=== PATIENT | male | born 1960 | race Caucasian/White ===

== ENCOUNTER 2019-01-03 18:56 | Inpatient (IN) | payer MEDICARE, OTHER ==
[~2019-01-03] VITALS: Ht 180.3 cm; Wt 82.7 kg
[2019-01-03 20:02] LABS: BASOPHILS # (AUTO) 0.1 X10'3 (0-0.2); BASOPHILS % (AUTO) 1.8 % (0-1); EOSINOPHILS % (AUTO) 0.5 % (0-6); HEMATOCRIT 34.5 % (42.0-52.0); HEMOGLOBIN 10.5 g/dl (14.0-17.9); LYMPHOCYTES % (AUTO) 20.4 % (21-51); MEAN CORPUSCULAR HEMOGLOBIN 22.5 PG (27.0-31.0); MEAN CORPUSCULAR HGB CONC 30.5 g/dL (33.0-36.5); MEAN CORPUSCULAR VOLUME 73.9 FL (78-98); MEAN PLATELET VOLUME 8.4 FL (7.4-10.4); MONOCYTES # (AUTO) 0.5 X10'3 (0-0.9); MONOCYTES % (AUTO) 9.9 % (2-12); NEUTROPHILS # (AUTO) 3.2 X10'3 (1.8-7.7); NEUTROPHILS % (AUTO) 67.4 % (42-75); PLATELET COUNT 254 X10'3 (140-440); RED BLOOD COUNT 4.67 X10'6 (4.70-6.10); RED CELL DISTRIBUTION WIDTH 29.5 % (11.5-14.5); WHITE BLOOD COUNT 4.8 X10'3 (4.5-11.0)
[2019-01-03 20:15] LABS: PARTIAL THROMBOPLASTIN TIME 29 SECONDS (22-32)
[2019-01-03 20:17] LABS: ALANINE AMINOTRANSFERASE 38 U/L (12-78); ALKALINE PHOSPHATASE 213 IU/L (46-116); ANION GAP 16 (8-16); ASPARTATE AMINO TRANSFERASE 57 U/L (10-37); BILIRUBIN,TOTAL 3.6 MG/DL (0.1-1.0); BLOOD UREA NITROGEN 26 MG/DL (7-18); BUN/CREATININE RATIO 16.9 (5.4-32.0); CALCIUM 8.8 MG/DL (8.5-10.1); CHLORIDE 100 MMOL/L (99-107); CREATININE 1.54 MG/DL (0.60-1.10); GLUCOSE 86 MG/DL (70-104); LARGE PLATELETS FEW; PLATELET ESTIMATE NORMAL; SODIUM 135 MMOL/L (135-145); eGFR 47 ML/MIN
[2019-01-03 20:18] LABS: ANISOCYTOSIS 3+; HYPOCHROMASIA 2+; MICROCYTOSIS 1+; POLYCHROMASIA FEW; TARGET CELLS 1+
[2019-01-03 20:19] LABS: POIKILOCYTOSIS 1+
[2019-01-03 20:20] LABS: SCHISTOCYTES FEW
[2019-01-03 20:23] LABS: ALBUMIN/GLOBULIN RATIO 0.6 (1.1-1.5); POTASSIUM 4.5 MMOL/L (3.5-5.1); TOTAL PROTEIN 7.7 G/DL (6.4-8.2)
[2019-01-03] MEDS ORDERED: aspirin 81mg tab.chew PO ONE (20:30)
[2019-01-03] MEDS ORDERED: furosemide 10 MG/1 ML 10ml inj IV ONE (21:00)
[2019-01-03 21:17] LABS: LIPASE 100 U/L (73-393)
[2019-01-03] MEDS ORDERED: heparin 10,000 units/1 ML INJ IV ONE ×3 (21:35→22:20)
[2019-01-03] MEDS ORDERED: heparin 25,000 UNIT/250ml bag 250 ML IV SCH (22:20)
[2019-01-03] MEDS ORDERED: heparin 10,000 units/1 ML INJ IV PRN (22:20)
[2019-01-03] MEDS: heparin 25,000 UNIT/250ml bag 250 ML IV SCH (22:32)
[2019-01-03] MEDS ORDERED: CARV12.5 PO (22:41)
[2019-01-03] MEDS ORDERED: EPIN11.7 INH (22:41)
[2019-01-03] MEDS ORDERED: ALBU8HFA PO (22:41)
[2019-01-03] MEDS ORDERED: FURO80TA3 PO (22:47)
[2019-01-03] MEDS ORDERED: FERR325T28 PO (22:47)
--- NOTE | 2019-01-03 22:52 | NUR ---
Note toni in [facility] - 01/03/19 at 2254 by TRELL patient reports she feel better after getting a breathing treatment, I can still hear wheezes. I will continue to monitor.
--- NOTE | 2019-01-03 22:54 | NUR ---
Heparin gtt started, Dr. Brooke is with the patient now.
[2019-01-03 23:09] LABS: URINE AMPHETAMINE SCREEN POSITIVE (Neg); URINE BARBITUATE SCREEN NEGATIVE (Neg); URINE BENZODIAZEPINES SCREEN NEGATIVE (Neg); URINE CANNABINOID SCREEN NEGATIVE (Neg); URINE COCAINE SCREEN NEGATIVE (Neg); URINE METHADONE SCREEN NEGATIVE (Neg); URINE OPIATE SCREEN NEGATIVE (Neg); URINE PHENCYCLIDINE SCREEN NEGATIVE (Neg)
[2019-01-03] MEDS ORDERED: acetaminophen 325mg tablet PO PRN (23:10)
[2019-01-03] MEDS ORDERED: mag hydrox/Alum hydrox/simeth 30ml oral suspension PO PRN (23:10)
[2019-01-03] MEDS ORDERED: magnesium hydroxide 30ml (MOM) UD suspension PO PRN (23:10)
[2019-01-03] MEDS ORDERED: ondansetron/PF 4mg/2ml inj IV PRN (23:10)
[2019-01-03] MEDS ORDERED: morphine 2 MG/ML inj. syringe IV PRN ×2 (23:10)
[2019-01-04] VITALS (7 sets, daily range): BP systolic 102–124; BP diastolic 69–88
--- NOTE | 2019-01-04 00:23 | NUR ---
Recieved report from ALISHA Monzon in ER. Patient transferred to PCU arrived via gurney at 0015. Placed patient on tele 47, MRSA swab complete, heparin drip running per protocol, patient belongings in bedside drawer, 2 RN skin check complete. Vital signs take, will record in vital intervention. Patient is resting.
[2019-01-04 01:51] LABS: BASOPHILS % (AUTO) 0.7 % (0-1); EOSINOPHILS % (AUTO) 0.3 % (0-6); HEMATOCRIT 36.1 % (42.0-52.0); HEMOGLOBIN 10.9 g/dl (14.0-17.9); LYMPHOCYTES # (AUTO) 1.2 X10'3 (1.1-4.8); LYMPHOCYTES % (AUTO) 25.5 % (21-51); MEAN CORPUSCULAR HEMOGLOBIN 22.4 PG (27.0-31.0); MEAN CORPUSCULAR HGB CONC 30.3 g/dL (33.0-36.5); MEAN PLATELET VOLUME 8.3 FL (7.4-10.4); MONOCYTES # (AUTO) 0.3 X10'3 (0-0.9); MONOCYTES % (AUTO) 7.2 % (2-12); NEUTROPHILS # (AUTO) 3.2 X10'3 (1.8-7.7); NEUTROPHILS % (AUTO) 66.3 % (42-75); PLATELET COUNT 233 X10'3 (140-440); RED BLOOD COUNT 4.88 X10'6 (4.70-6.10); RED CELL DISTRIBUTION WIDTH 29.3 % (11.5-14.5); WHITE BLOOD COUNT 4.8 X10'3 (4.5-11.0)
[2019-01-04 02:05] LABS: ALANINE AMINOTRANSFERASE 39 U/L (12-78); ALBUMIN/GLOBULIN RATIO 0.6 (1.1-1.5); ALKALINE PHOSPHATASE 215 IU/L (46-116); ANION GAP 16 (8-16); ASPARTATE AMINO TRANSFERASE 56 U/L (10-37); BILIRUBIN,TOTAL 3.7 MG/DL (0.1-1.0); BLOOD UREA NITROGEN 26 MG/DL (7-18); BUN/CREATININE RATIO 17.4 (5.4-32.0); CALCIUM 8.9 MG/DL (8.5-10.1); CHLORIDE 101 MMOL/L (99-107); CREATININE 1.49 MG/DL (0.60-1.10); GLUCOSE 94 MG/DL (70-104); POTASSIUM 3.4 MMOL/L (3.5-5.1); SODIUM 138 MMOL/L (135-145); TOTAL CARBON DIOXIDE 21.5 MMOL/L (24-32); TOTAL PROTEIN 7.8 G/DL (6.4-8.2); eGFR 49 ML/MIN
[2019-01-04] MEDS ORDERED: potassium Cl 20 mEq SR tablet PO PRN ×3 (02:55→17:45)
--- NOTE | 2019-01-04 02:55 | NUR ---
NOTIFIED Called Dr. Brooke to notify him of Critical Troponin level of 1.27 trending down from 1.38 and 1.32. Expected finding. Also received order to replace potassium per protocol.
[2019-01-04] MEDS: potassium Cl 20 mEq SR tablet PO PRN ×4 (03:29→17:17)
--- NOTE | 2019-01-04 05:04 | NUR ---
I have reviewed and agree with all medications administered and interventions performed by Orienting nurse ALISHA Wilder.
[2019-01-04] MEDS: furosemide 40mg/4ml inj IV SCH ×3 (06:18→20:00)
--- NOTE | 2019-01-04 06:20 | NUR ---
Problems reprioritized. Patient report given, questions answered & plan of care reviewed with ALISHA Castorena.
[2019-01-04] MEDS: heparin 10,000 units/1 ML INJ IV PRN ×2 (06:21→22:53)
[2019-01-04] MEDS: heparin 25,000 UNIT/250ml bag 250 ML IV SCH ×4 (06:23→22:55)
--- NOTE | 2019-01-04 06:39 | NUR ---
Patient in room U 3024B. I have received report from Judith BRITO and had the opportunity to ask questions and assume patient care.
[2019-01-04] MEDS: carvedilol 6.25mg tablet PO SCH ×2 (07:20→20:00)
[2019-01-04] MEDS ORDERED: furosemide 40mg/4ml inj IV SCH ×2 (08:00)
--- NOTE | 2019-01-04 08:32 | NUR ---
Lasix order for 80 mg BID changed by night RN from 0800 to 0600 so that bi tri operator RN could give the dose. This RN called pharmacy regarding the EMAR still having the 0800 dose "red." Pharmacist said to "non admin" 0800 dose since and the following does will be at 1999.
--- NOTE | 2019-01-04 09:30 | NUR ---
LAB VALUE TAKEN AND REPORTED TO PRIMARY RN.
--- NOTE | 2019-01-04 09:33 | NUR ---
Paged Dr Subramanian to make aware of trop 0.97 PAGER ID: [phone] MESSAGE: Kell [phone]. Herman Sargent [id number]. Lab reported trop of 0.97
--- NOTE | 2019-01-04 10:52 | NUR ---
Aid came to nurses station stating that they had found a bag of meth in patients room. Patient stated that it was his and fell out of his pocket. Security was called and they went and spoke to the patient and took away the meth. Paged Dr Subramanian to make aware of the incident. Patient is currently stable and will monitor closely. PAGER ID: [phone] MESSAGE: Kell [phone]. Herman Sargent [id number]. RIGOBERTO that bag of meth was found in patients room. Security took away, and monitoring patient closely.
[2019-01-04] MEDS: aspirin 81mg tab.chew PO SCH (13:10)
[2019-01-04 13:35] LABS: CHOLESTEROL 90 MG/DL (0-200); HDL CHOLESTEROL 15 MG/DL (35-60); LDL CHOLESTEROL 77 MG/DL (50-100); TRIGLYCERIDES 34 MG/DL (20-135)
[2019-01-04] MEDS ORDERED: magnesium Cl slow-release 64mg tablet PO PRN ×2 (17:45→19:05)
[2019-01-04] MEDS ORDERED: potassium CL 10mEq/100ml bag 100 ML IV PRN (17:45)
[2019-01-04] MEDS ORDERED: magnesium 4gm in 100ml NS 100 ML IV PRN ×2 (17:45→19:05)
--- NOTE | 2019-01-04 18:07 | NUR ---
Paged Dr Subramanian PAGER ID: [phone] MESSAGE: Kell BIRD. Herman Sargent [id number]. Reported from telegraphic instrument supervisor that patient had a run of V-tach. Strip had static in it but she stated it lasted 8 seconds.
--- NOTE | 2019-01-04 18:22 | NUR ---
Problems reprioritized. Patient report given, questions answered & plan of care reviewed with Lisa BRITO.
--- NOTE | 2019-01-04 18:36 | NUR ---
Patient in room PCU 3024. I have received report from Kell Brooks and had the opportunity to ask questions and assume patient care.
--- NOTE | 2019-01-04 18:53 | NUR ---
PAGER ID: [phone] MESSAGE: Swathi Subramanian, pt Michelle Saurabh had 8 sec beats of Vtach, vital signs are stable. Thanks, Lisa RN [phone]!
--- NOTE | 2019-01-04 19:03 | NUR ---
contacted Dr. Brooke about 8 beats of vtach, he said follow Potassium and magnesium protocol
[2019-01-04] MEDS ORDERED: magnesium 2GM in 50ml NS 50 ML IV PRN (19:05)
--- NOTE | 2019-01-04 21:00 | NUR ---
pt ambulated to the bathroom himself without using the call light or ask for any assistance
[2019-01-04] MEDS: lisinopril 5mg tablet PO SCH (22:10)
--- NOTE | 2019-01-04 23:07 | NUR ---
ptt is 43, rate changed to 1100 for heparin gtt, and bolus 3000 unit
--- NOTE | 2019-01-05 00:35 | NUR ---
pt unhooked the IV himself and ambulated to the arnold without assistance or notify nurse
--- NOTE | 2019-01-05 00:40 | NUR ---
tab alarm is on for pt and, he is resting on bed
[2019-01-05 03:00] VITALS: BP 108/72
[2019-01-05] MEDS: heparin 25,000 UNIT/250ml bag 250 ML IV SCH (03:48)
--- NOTE | 2019-01-05 04:12 | NUR ---
pt had 5 beats of vtach, vital signs are WNL, aware
[2019-01-05 05:43] LABS: BASOPHILS % (AUTO) 0.8 % (0-1); EOSINOPHILS % (AUTO) 0.7 % (0-6); HEMATOCRIT 33.8 % (42.0-52.0); HEMOGLOBIN 10.5 g/dl (14.0-17.9); LYMPHOCYTES % (AUTO) 23.2 % (21-51); MEAN CORPUSCULAR HEMOGLOBIN 22.8 PG (27.0-31.0); MEAN CORPUSCULAR HGB CONC 31.2 g/dL (33.0-36.5); MEAN CORPUSCULAR VOLUME 73.1 FL (78-98); MEAN PLATELET VOLUME 8.5 FL (7.4-10.4); MONOCYTES # (AUTO) 0.3 X10'3 (0-0.9); MONOCYTES % (AUTO) 7.5 % (2-12); NEUTROPHILS # (AUTO) 2.9 X10'3 (1.8-7.7); NEUTROPHILS % (AUTO) 67.8 % (42-75); PLATELET COUNT 230 X10'3 (140-440); RED BLOOD COUNT 4.63 X10'6 (4.70-6.10); RED CELL DISTRIBUTION WIDTH 29.1 % (11.5-14.5); WHITE BLOOD COUNT 4.3 X10'3 (4.5-11.0)
[2019-01-05 06:00] VITALS: BP 117/79
--- NOTE | 2019-01-05 06:02 | NUR ---
ptt is 73, hold the infusion for 60 minute, will let the next shift know about the change to change the rate down by 2 units
[2019-01-05 06:09] LABS: ALANINE AMINOTRANSFERASE 37 U/L (12-78); ALBUMIN 2.7 G/DL (3.4-5.0); ALBUMIN/GLOBULIN RATIO 0.6 (1.1-1.5); ALKALINE PHOSPHATASE 203 IU/L (46-116); ANION GAP 11 (8-16); ASPARTATE AMINO TRANSFERASE 55 U/L (10-37); BILIRUBIN,TOTAL 3.2 MG/DL (0.1-1.0); BLOOD UREA NITROGEN 30 MG/DL (7-18); BUN/CREATININE RATIO 21.3 (5.4-32.0); CALCIUM 8.6 MG/DL (8.5-10.1); CHLORIDE 101 MMOL/L (99-107); CREATININE 1.41 MG/DL (0.60-1.10); GLUCOSE 105 MG/DL (70-104); MAGNESIUM 1.8 MG/DL (1.5-2.4); PHOSPHORUS 3.1 MG/DL (2.3-4.5); POTASSIUM 3.3 MMOL/L (3.5-5.1); SODIUM 138 MMOL/L (135-145); TOTAL CARBON DIOXIDE 25.7 MMOL/L (24-32); TOTAL PROTEIN 7.3 G/DL (6.4-8.2); eGFR 52 ML/MIN
--- NOTE | 2019-01-05 06:23 | NUR ---
Problems reprioritized. Patient report given, questions answered & plan of care reviewed with Padmini BRITO.
--- NOTE | 2019-01-05 06:39 | NUR ---
Patient in room PCU 3024. I have received report from ALISHA Gonzalez and had the opportunity to ask questions and assume patient care. Patient is currently resting in bed, heparin drip on hold per protocol, bed locked and low, call light in reach, no acute distress, will continue to monitor.
[2019-01-05] MEDS: potassium Cl 20 mEq SR tablet PO PRN (07:38)
[2019-01-05] MEDS: carvedilol 6.25mg tablet PO SCH ×2 (07:38→20:29)
[2019-01-05] MEDS: atorvastatin 20mg tablet PO SCH (07:39)
[2019-01-05] MEDS: aspirin 81mg tab.chew PO SCH (07:39)
[2019-01-05] MEDS: spironolactone 25 MG tablet PO SCH (07:39)
[2019-01-05] MEDS: furosemide 40mg/4ml inj IV SCH ×2 (07:41→20:29)
[2019-01-05 09:32] LABS: ANISOCYTOSIS 3+; MICROCYTOSIS 1+; PLATELET ESTIMATE NORMAL
[2019-01-05 09:37] LABS: POLYCHROMASIA 1+
[2019-01-05 11:00] VITALS: BP 114/74
[2019-01-05 15:00] VITALS: BP 104/59
[2019-01-05] MEDS: ipratropium/albuterol 3ml nebule NEB PRN ×2 (16:15→20:29)
--- NOTE | 2019-01-05 18:27 | NUR ---
Problems reprioritized. Patient report given, questions answered & plan of care reviewed with ALISHA Stinson. Patient currently resting in bed, bed locked and low, call light in reach, stable at shift change
[2019-01-05 19:00] VITALS: BP 97/62
[2019-01-05] MEDS: lisinopril 5mg tablet PO SCH (20:29)
[2019-01-05 23:00] VITALS: BP 90/58
[2019-01-06] VITALS (14 sets, daily range): BP systolic 86–118; BP diastolic 53–83
[2019-01-06] MEDS: heparin 25,000 UNIT/250ml bag 250 ML IV SCH (05:44)
[2019-01-06 05:49] LABS: BASOPHILS % (AUTO) 0.4 % (0-1); EOSINOPHILS # (AUTO) 0.1 X10'3 (0-0.9); EOSINOPHILS % (AUTO) 1.1 % (0-6); HEMATOCRIT 32.6 % (42.0-52.0); HEMOGLOBIN 10.3 g/dl (14.0-17.9); LYMPHOCYTES # (AUTO) 0.8 X10'3 (1.1-4.8); LYMPHOCYTES % (AUTO) 13.6 % (21-51); MEAN CORPUSCULAR HGB CONC 31.5 g/dL (33.0-36.5); MEAN PLATELET VOLUME 8.6 FL (7.4-10.4); MONOCYTES # (AUTO) 0.5 X10'3 (0-0.9); MONOCYTES % (AUTO) 8.6 % (2-12); NEUTROPHILS # (AUTO) 4.7 X10'3 (1.8-7.7); NEUTROPHILS % (AUTO) 76.3 % (42-75); PLATELET COUNT 241 X10'3 (140-440); RED BLOOD COUNT 4.46 X10'6 (4.70-6.10); RED CELL DISTRIBUTION WIDTH 29.5 % (11.5-14.5); WHITE BLOOD COUNT 6.2 X10'3 (4.5-11.0)
--- NOTE | 2019-01-06 06:00 | NUR ---
Patient in room PCU 3024. I have received report from Padmini BRIOT and had the opportunity to ask questions and assume patient care.
[2019-01-06 06:12] LABS: ALANINE AMINOTRANSFERASE 30 U/L (12-78); ALBUMIN 2.2 G/DL (3.4-5.0); ALBUMIN/GLOBULIN RATIO 0.6 (1.1-1.5); ALKALINE PHOSPHATASE 171 IU/L (46-116); ANION GAP 9 (8-16); ASPARTATE AMINO TRANSFERASE 46 U/L (10-37); BILIRUBIN,TOTAL 2.5 MG/DL (0.1-1.0); BLOOD UREA NITROGEN 29 MG/DL (7-18); BUN/CREATININE RATIO 25.9 (5.4-32.0); CALCIUM 8.2 MG/DL (8.5-10.1); CHLORIDE 102 MMOL/L (99-107); CREATININE 1.12 MG/DL (0.60-1.10); GLUCOSE 99 MG/DL (70-104); MAGNESIUM 1.5 MG/DL (1.5-2.4); PHOSPHORUS 2.3 MG/DL (2.3-4.5); SODIUM 140 MMOL/L (135-145); TOTAL CARBON DIOXIDE 29.3 MMOL/L (24-32); eGFR 68 ML/MIN
[2019-01-06 06:17] LABS: POTASSIUM 2.9 MMOL/L (3.5-5.1)
--- NOTE | 2019-01-06 06:18 | NUR ---
Received critical lab result of K 2.9, notified primary RN Padmini.
[2019-01-06 06:25] LABS: ANISOCYTOSIS 3+; MICROCYTOSIS 1+; PLATELET ESTIMATE NORMAL
[2019-01-06 06:50] LABS: HYPOCHROMASIA 1+
[2019-01-06 06:52] LABS: ELLIPTOCYTES FEW; SCHISTOCYTES FEW
--- NOTE | 2019-01-06 07:08 | NUR ---
PAGER ID: [phone] MESSAGE: ALISHA Washington, ext [phone], [phone], Michelle, critical value received: K 2.9, potassium placement protocol started, patient received 1st dose 40meq K-Dur.
--- NOTE | 2019-01-06 07:08 | NUR ---
Patient in room PCU 3023. I have received report from ALISHA Stinson and had the opportunity to ask questions and assume patient care. Patient is currently resting in bed, bed locked and low, call light in reach, no acute distress. IV site on RFA was bleeding, new IV inserted in MARY and other IV DC'd, catheter tip intact, coban dressing applied and hemostasis achieved. Heparin running at 900 units/hr, pending cardiac PTT results. Will continue to monitor.
[2019-01-06] MEDS ORDERED: enoxaparin 40mg/0.4ml syringe SUBCUT SCH (08:00)
[2019-01-06] MEDS: carvedilol 6.25mg tablet PO SCH ×2 (08:03→21:10)
[2019-01-06] MEDS: atorvastatin 20mg tablet PO SCH (08:04)
[2019-01-06] MEDS: aspirin 81mg tab.chew PO SCH (08:06)
[2019-01-06] MEDS: furosemide 40mg/4ml inj IV SCH ×2 (08:16→21:10)
[2019-01-06] MEDS: spironolactone 25 MG tablet PO SCH (08:30)
--- NOTE | 2019-01-06 09:12 | NUR ---
Student Medication Administration: For this medication-pass time frame, all medication were reviewed, dispensed, administered and documented per hospital policy by Delmy Del Castillo [facility].
[2019-01-06] MEDS ORDERED: magnesium 4gm in 100ml NS 100 ML IV ONE (10:30)
[2019-01-06] MEDS: potassium CL 10mEq/100ml bag 100 ML IV PRN ×6 (11:57→23:30)
[2019-01-06] MEDS ORDERED: octreotide inj. 1,250 MCG in normal saline 250ml IV soln 243.75 ML IV SCH (12:05)
[2019-01-06 13:00] LABS: FERRITIN 53 NG/ML (26-388)
[2019-01-06 13:02] LABS: % IRON SATURATION 5 % (11-46); IRON 15 UG/DL (53-167); TOTAL IRON BINDING CAPACITY 333 UG/DL (259-388)
[2019-01-06] MEDS ORDERED: fentaNYL/PF 50MCG/1 ML 2ML syringe ONE (13:22)
[2019-01-06] MEDS ORDERED: MIDAZolam 5mg/5ml vial ONE (13:22)
[2019-01-06] MEDS ORDERED: LIDOcaine Viscous 15ml cup ONE (13:22)
[2019-01-06 14:00] LABS: GASTRIC OCCULT BLOOD POSITIVE (Neg)
[2019-01-06] MEDS: octreotide inj. 1,250 MCG in normal saline 250ml IV soln 243.75 ML IV SCH (16:46)
[2019-01-06] MEDS: pantoprazole 40MG/NS 100ML BAG 100 ML IV SCH ×2 (16:46→21:11)
--- NOTE | 2019-01-06 18:26 | NUR ---
Problems reprioritized. Patient report given, questions answered & plan of care reviewed with ALISHA Alcazar.
--- NOTE | 2019-01-06 18:27 | NUR ---
Patient in room PCU 3024. I have received report from ALISHA Washington and had the opportunity to ask questions and assume patient care.
[2019-01-06] MEDS: lisinopril 5mg tablet PO SCH (21:11)
[2019-01-06] MEDS: ipratropium/albuterol 3ml nebule NEB PRN (22:43)
[2019-01-07] MEDS: potassium CL 10mEq/100ml bag 100 ML IV PRN ×2 (00:31→01:32)
[2019-01-07] MEDS: pantoprazole 40MG/NS 100ML BAG 100 ML IV SCH ×5 (01:07→19:12)
[2019-01-07 02:00] VITALS: BP 92/62
[2019-01-07] MEDS: ipratropium/albuterol 3ml nebule NEB PRN ×2 (03:55→08:41)
[2019-01-07 06:00] VITALS: BP 120/65
--- NOTE | 2019-01-07 06:37 | NUR ---
Problems reprioritized. Patient report given, questions answered & plan of care reviewed with ALISHA Jacques.
[2019-01-07] MEDS: carvedilol 6.25mg tablet PO SCH ×3 (07:57→23:36)
[2019-01-07] MEDS: furosemide 40mg/4ml inj IV SCH ×2 (07:58→20:00)
[2019-01-07] MEDS: aspirin 81mg tab.chew PO SCH (07:58)
[2019-01-07] MEDS: atorvastatin 20mg tablet PO SCH (07:58)
[2019-01-07] MEDS: spironolactone 25 MG tablet PO SCH (07:58)
[2019-01-07 11:00] VITALS: BP 88/57
[2019-01-07 15:00] VITALS: BP 98/61
[2019-01-07 18:00] VITALS: BP 100/72
--- NOTE | 2019-01-07 18:20 | NUR ---
Patient in room PCU 3024. I have received report from Georgie BRITO and had the opportunity to ask questions and assume patient care.
[2019-01-07] MEDS: lisinopril 5mg tablet PO SCH (21:00)
[2019-01-07 21:59] LABS: MAGNESIUM 1.7 MG/DL (1.5-2.4)
[2019-01-07 22:00] VITALS: BP 91/67
--- NOTE | 2019-01-07 23:48 | NUR ---
took BP again, BP 100/64, 80. RN held Lasix 80mg, but gave Coreg 6.25 instead.
[2019-01-08] MEDS: pantoprazole 40MG/NS 100ML BAG 100 ML IV SCH ×3 (00:19→10:37)
[2019-01-08 02:00] VITALS: BP 96/62
[2019-01-08] MEDS: ipratropium/albuterol 3ml nebule NEB PRN (05:33)
--- NOTE | 2019-01-08 05:53 | NUR ---
Pt started to c/p SOB around 5:30, put on 2L O2 via NC, paged RT for breathing treatment.
--- NOTE | 2019-01-08 05:57 | NUR ---
I have reviewed and agree with Jenni Hallman's RN charting.
[2019-01-08 06:00] VITALS: BP 106/60
--- NOTE | 2019-01-08 06:00 | NUR ---
Problems reprioritized. Patient report given, questions answered & plan of care reviewed with Gustabo Solitario RN.
--- NOTE | 2019-01-08 06:39 | NUR ---
Problems reprioritized. Patient report given, questions answered & plan of care reviewed with Kassi Cardenas RN.
[2019-01-08] MEDS: furosemide 40mg/4ml inj IV SCH (08:00)
[2019-01-08] MEDS: atorvastatin 20mg tablet PO SCH (09:02)
[2019-01-08] MEDS: aspirin 81mg tab.chew PO SCH (09:02)
[2019-01-08] MEDS: spironolactone 25 MG tablet PO SCH (09:02)
[2019-01-08] MEDS: carvedilol 6.25mg tablet PO SCH (09:03)
[2019-01-08 11:00] VITALS: BP 107/74
[2019-01-08] MEDS ORDERED: LISI-642 PO (13:04)
[2019-01-08] MEDS ORDERED: ASPI-1265 PO (13:04)
[2019-01-08] MEDS ORDERED: CARV6.253 PO (13:04)
[2019-01-08] MEDS ORDERED: PANT40TA4 PO (13:04)
[2019-01-08] MEDS ORDERED: ATOR20TA66 PO (13:04)
[2019-01-08] MEDS ORDERED: SPIR25TA PO (13:04)
[2019-01-08] MEDS: octreotide inj. 1,250 MCG in normal saline 250ml IV soln 243.75 ML IV SCH (13:09)
--- NOTE | 2019-01-08 15:06 | NUR ---
Discharge Heart Failure CM Appointment is made for Pt. at [facility] on 01-14-19 at 3PM Pt. did not previously have a Forensic Computer Examiner. He is assigned Dr. Jensen and is to make an appointment for himself with Dr. Jensen. It is Thursday at the time of his discharge.
--- NOTE | 2019-01-08 16:15 | NUR ---
Discharged home: Pt. is wearing [employer] life vest home, he has a follow up appointment with Dr. Jensen who will follow his heart failure needs. Pt. has written information to refer to. His new home medications are called to [facility]. Heart Failure information including dietary needs are provided in written form. IV's are discontinued. Transportation Home is provided by family/friend. Instruction is understood and written reference to these instructions is provided.
== END 2019-01-08 16:05 | disposition home health service (06) | DRG 280 ==
LOC: ER 18:58 → PCU 3S 01-04 00:02
PROVIDERS: ADMIT Internal Medicine; ATTEND Family Medicine
PROC: 0W3P8ZZ Control Bleeding in Gastrointestinal Tract, Via Natural or Artificial Opening Endoscopic (ICD-10-PCS; principal; 2019-01-06)
DX: I13.0 Hypertensive heart and chronic kidney disease with heart failure and stage 1 through stage 4 chronic kidney disease, or unspecified chronic kidney disease (principal); I21.4 Non-ST elevation (NSTEMI) myocardial infarction; I50.23 Acute on chronic systolic (congestive) heart failure; K29.71 Gastritis, unspecified, with bleeding; K22.11 Ulcer of esophagus with bleeding; R18.8 Other ascites; J44.9 Chronic obstructive pulmonary disease, unspecified; I07.1 Rheumatic tricuspid insufficiency; E87.6 Hypokalemia; F15.10 Other stimulant abuse, uncomplicated; D63.8 Anemia in other chronic diseases classified elsewhere; F17.210 Nicotine dependence, cigarettes, uncomplicated; N18.9 Chronic kidney disease, unspecified; Z79.82 Long term (current) use of aspirin; Z79.899 Other long term (current) drug therapy; Z91.19 Patient's noncompliance with other medical treatment and regimen; Z71.6 Tobacco abuse counseling
CPT/HCPCS: 36415; 43255; 71045; 76700; 80053; 80061; 80305; 82140; 82271; 82728; 83540; 83550; 83690; 83735; 83880; 84100; 84132; 84484; 85025; 85610; 85730; 87081; 93005; 93306; 94640; 94760; 96374; 96375; 97116; 97161; 97530; 99152; 99285; A4620; C9113; G0378; J1644; J1650; J1940; J2250; J2270; J2354; J3010; J3475; J3480; J7040; J7050

== ENCOUNTER 2019-01-18 15:11 | Emergency (ER) | payer MEDICARE, OTHER ==
[~2019-01-18] VITALS: Ht 180.3 cm; Wt 80.0 kg
[~2019-01-18 15:11] MED LIST: ALBU8HFA PO; ASPI-1265 PO; ATOR20TA66 PO; CARV6.253 PO; EPIN11.7 INH; FERR325T28 PO; FURO80TA3 PO; LISI-642 PO; PANT40TA4 PO; SPIR25TA PO
[2019-01-18 17:34] LABS: HEMOGLOBIN 9.1 g/dl (14.0-17.9); MEAN CORPUSCULAR HEMOGLOBIN 23.4 PG (27.0-31.0); PLATELET COUNT 343 X10'3 (140-440); RED BLOOD COUNT 3.87 X10'6 (4.70-6.10); RED CELL DISTRIBUTION WIDTH 27.3 % (11.5-14.5); WHITE BLOOD COUNT 5.9 X10'3 (4.5-11.0)
[2019-01-18 17:36] LABS: MEAN CORPUSCULAR HGB CONC 31.3 g/dL (33.0-36.5); MEAN CORPUSCULAR VOLUME 74.8 FL (78-98); MEAN PLATELET VOLUME 7.3 FL (7.4-10.4)
[2019-01-18 17:47] LABS: ALANINE AMINOTRANSFERASE 40 U/L (12-78); ALBUMIN 2.6 G/DL (3.4-5.0); ALBUMIN/GLOBULIN RATIO 0.5 (1.1-1.5); ALKALINE PHOSPHATASE 182 IU/L (46-116); ANION GAP 5 (8-16); ASPARTATE AMINO TRANSFERASE 37 U/L (10-37); BILIRUBIN,TOTAL 1.4 MG/DL (0.1-1.0); BLOOD UREA NITROGEN 23 MG/DL (7-18); CALCIUM 8.7 MG/DL (8.5-10.1); CHLORIDE 103 MMOL/L (99-107); CREATININE 0.96 MG/DL (0.60-1.10); GLUCOSE 85 MG/DL (70-104); SODIUM 137 MMOL/L (135-145); TOTAL CARBON DIOXIDE 29.4 MMOL/L (24-32); TOTAL PROTEIN 7.7 G/DL (6.4-8.2); eGFR 81 ML/MIN
[2019-01-18 17:57] LABS: PARTIAL THROMBOPLASTIN TIME 24 SECONDS (22-32)
[2019-01-18 18:18] LABS: TOTAL CELLS COUNTED 100
[2019-01-18 18:19] LABS: ANISOCYTOSIS 3+; ETHANOL < 0.010 GM/DL (0.0-0.010); HYPOCHROMASIA 1+; MICROCYTOSIS 1+; PLATELET ESTIMATE NORMAL; POLYCHROMASIA 1+
[2019-01-18 19:36] LABS: URINE AMPHETAMINE SCREEN NEGATIVE (Neg); URINE BARBITUATE SCREEN NEGATIVE (Neg); URINE BENZODIAZEPINES SCREEN NEGATIVE (Neg); URINE CANNABINOID SCREEN NEGATIVE (Neg); URINE COCAINE SCREEN NEGATIVE (Neg); URINE METHADONE SCREEN NEGATIVE (Neg); URINE OPIATE SCREEN NEGATIVE (Neg); URINE PHENCYCLIDINE SCREEN NEGATIVE (Neg)
[2019-01-18 20:21] VITALS: BP 144/62
== END 2019-01-18 20:24 | disposition home or self-care (01) ==
LOC: ER 15:12
DX: R07.89 Other chest pain (principal); R14.0 Abdominal distension (gaseous); R06.02 Shortness of breath; J44.9 Chronic obstructive pulmonary disease, unspecified; I50.9 Heart failure, unspecified; F15.90 Other stimulant use, unspecified, uncomplicated; Z86.2 Personal history of diseases of the blood and blood-forming organs and certain disorders involving the immune mechanism; Z79.899 Other long term (current) drug therapy; Z79.82 Long term (current) use of aspirin
CPT/HCPCS: 36415; 71045; 80053; 80305; 80320; 84484; 85025; 85610; 85730; 93005; 99284

== ENCOUNTER 2019-01-25 16:30 | Inpatient (IN) | payer MEDICARE, OTHER ==
[~2019-01-25] VITALS: Ht 180.3 cm; Wt 100.0 kg
[2019-01-25 17:08] LABS: BASOPHILS # (AUTO) 0.1 X10'3 (0-0.2); BASOPHILS % (AUTO) 1.4 % (0-1); EOSINOPHILS # (AUTO) 0.1 X10'3 (0-0.9); EOSINOPHILS % (AUTO) 2.3 % (0-6); HEMATOCRIT 27.3 % (42.0-52.0); HEMOGLOBIN 8.4 g/dl (14.0-17.9); LYMPHOCYTES # (AUTO) 0.9 X10'3 (1.1-4.8); LYMPHOCYTES % (AUTO) 18.1 % (21-51); MEAN CORPUSCULAR HGB CONC 30.8 g/dL (33.0-36.5); MEAN CORPUSCULAR VOLUME 74.6 FL (78-98); MEAN PLATELET VOLUME 6.9 FL (7.4-10.4); MONOCYTES # (AUTO) 0.6 X10'3 (0-0.9); MONOCYTES % (AUTO) 12.5 % (2-12); NEUTROPHILS # (AUTO) 3.2 X10'3 (1.8-7.7); NEUTROPHILS % (AUTO) 65.7 % (42-75); PLATELET COUNT 333 X10'3 (140-440); RED BLOOD COUNT 3.66 X10'6 (4.70-6.10); RED CELL DISTRIBUTION WIDTH 25.2 % (11.5-14.5); WHITE BLOOD COUNT 4.8 X10'3 (4.5-11.0)
[2019-01-25 17:19] LABS: PARTIAL THROMBOPLASTIN TIME 27 SECONDS (22-32)
[2019-01-25 17:23] LABS: ALANINE AMINOTRANSFERASE 25 U/L (12-78); ALBUMIN 2.4 G/DL (3.4-5.0); ALBUMIN/GLOBULIN RATIO 0.5 (1.1-1.5); ALKALINE PHOSPHATASE 202 IU/L (46-116); ANION GAP 4 (8-16); ASPARTATE AMINO TRANSFERASE 27 U/L (10-37); BILIRUBIN,TOTAL 1.2 MG/DL (0.1-1.0); BLOOD UREA NITROGEN 23 MG/DL (7-18); BUN/CREATININE RATIO 23.7 (5.4-32.0); CALCIUM 8.3 MG/DL (8.5-10.1); CHLORIDE 106 MMOL/L (99-107); CREATININE 0.97 MG/DL (0.60-1.10); GLUCOSE 99 MG/DL (70-104); SODIUM 139 MMOL/L (135-145); TOTAL CARBON DIOXIDE 29.3 MMOL/L (24-32); TOTAL PROTEIN 7.1 G/DL (6.4-8.2); eGFR 80 ML/MIN
[2019-01-25] MEDS ORDERED: aspirin 81mg tab.chew PO ONE (17:25)
[2019-01-25 17:34] LABS: POTASSIUM 5.3 MMOL/L (3.5-5.1)
[2019-01-25] MEDS ORDERED: furosemide 40mg/4ml inj IV ONE (17:40)
[2019-01-25] MEDS ORDERED: furosemide 10 MG/1 ML 10ml inj IV ONE (17:40)
[2019-01-25 17:49] LABS: ANISOCYTOSIS 3+; MICROCYTOSIS 1+; PLATELET ESTIMATE NORMAL; TOTAL CELLS COUNTED 100
[2019-01-25] MEDS ORDERED: ATOR20TA66 PO (17:49)
[2019-01-25] MEDS ORDERED: LISI-604 PO (17:49)
[2019-01-25] MEDS ORDERED: ASPI-611 PO (17:49)
[2019-01-25 17:50] LABS: HYPOCHROMASIA 1+; POLYCHROMASIA 1+
[2019-01-25] MEDS ORDERED: metoclopramide 5 mg/ml inj IV PRN (17:50)
[2019-01-25] MEDS ORDERED: HYDROcodone/acetaminophen 10/325mg tab PO PRN (17:50)
[2019-01-25] MEDS ORDERED: magnesium hydroxide 30ml (MOM) UD suspension PO PRN (17:50)
[2019-01-25] MEDS ORDERED: acetaminophen 325mg tablet PO PRN ×2 (17:50)
[2019-01-25] MEDS ORDERED: magnesium 2GM in 50ml NS 50 ML IV PRN (17:50)
[2019-01-25] MEDS ORDERED: CARV6.252 PO (17:50)
[2019-01-25] MEDS ORDERED: HYDROcodone/acetaminophen 5mg/325mg tablet PO PRN (17:50)
[2019-01-25] MEDS ORDERED: diphenhydrAMINE 25mg capsule PO PRN (17:50)
[2019-01-25] MEDS ORDERED: magnesium 4gm in 100ml NS 100 ML IV PRN (17:50)
[2019-01-25] MEDS ORDERED: ondansetron/PF 4mg/2ml inj IV PRN (17:50)
[2019-01-25] MEDS ORDERED: potassium CL 10mEq/100ml bag 100 ML IV PRN ×2 (17:50)
[2019-01-25] MEDS ORDERED: potassium Cl 20 mEq SR tablet PO PRN ×2 (17:50)
[2019-01-25] MEDS ORDERED: magnesium Cl slow-release 64mg tablet PO PRN (17:50)
[2019-01-25] MEDS ORDERED: bisacodyl 10mg suppository rectal RC PRN (17:50)
[2019-01-25] MEDS ORDERED: diphenhydrAMINE 50 mg/ml inj IV PRN (17:50)
[2019-01-25] MEDS ORDERED: mag hydrox/Alum hydrox/simeth 30ml oral suspension PO PRN (17:50)
[2019-01-25 17:51] LABS: ELLIPTOCYTES FEW; SCHISTOCYTES FEW
[2019-01-25 17:52] LABS: POIKILOCYTOSIS 1+; TARGET CELLS FEW; TEAR DROP CELLS FEW
[2019-01-25] MEDS ORDERED: ipratropium/albuterol 3ml nebule NEB PRN (18:00)
[2019-01-25 18:20] LABS: URINE AMPHETAMINE SCREEN NEGATIVE (Neg); URINE BARBITUATE SCREEN NEGATIVE (Neg); URINE BENZODIAZEPINES SCREEN NEGATIVE (Neg); URINE CANNABINOID SCREEN NEGATIVE (Neg); URINE COCAINE SCREEN NEGATIVE (Neg); URINE METHADONE SCREEN NEGATIVE (Neg); URINE OPIATE SCREEN NEGATIVE (Neg); URINE PHENCYCLIDINE SCREEN NEGATIVE (Neg)
[2019-01-25] MEDS ORDERED: FURO-149 PO (18:29)
--- NOTE | 2019-01-25 18:31 | NUR ---
Attempted to complete med rec, patient reports taking 6 medications, does not know what 6th medication is. Atorvastatin was listed, patient denies taking.
[2019-01-25] MEDS: ipratropium/albuterol 3ml nebule NEB SCH ×2 (20:42→23:00)
--- NOTE | 2019-01-25 20:45 | NUR ---
Patient in room PCU 3027. I have received report from Nicole in ER via phone, and had the opportunity to ask questions and assume patient care. pt arrived to unit around 2039. a/o x4, SOB noted. initiated tele box #42. fall risk implemented and education provided.
[2019-01-25 20:52] VITALS: BP 116/88
[2019-01-25] MEDS: carvedilol 6.25mg tablet PO SCH (20:57)
[2019-01-25] MEDS: docusate sod 100mg capsule PO SCH (20:57)
[2019-01-25] MEDS: furosemide 40mg/4ml inj IV SCH (20:57)
[2019-01-25] MEDS: temazepam 15mg capsule PO PRN (22:04)
[2019-01-25 23:00] VITALS: BP 125/79
[2019-01-26] VITALS (7 sets, daily range): BP systolic 92–128; BP diastolic 51–80
--- NOTE | 2019-01-26 04:35 | NUR ---
pt found on floor. between bed and wall. pt denies hitting head, or pain. vitals post fall, 111/69, pulse 86 regular, respiration 28 93 % RA. 0/10 pain. pt assisted to bed with 3 person assist. gait unsteady. bed lock and low, bed alarm on
--- NOTE | 2019-01-26 05:07 | NUR ---
Dr. Singh returned call r/t status post fall. no new orders. pt resting in bed quietly, fall prevention implemented. education provided.
[2019-01-26 06:17] LABS: ALANINE AMINOTRANSFERASE 24 U/L (12-78); ALBUMIN 2.6 G/DL (3.4-5.0); ALBUMIN/GLOBULIN RATIO 0.5 (1.1-1.5); ALKALINE PHOSPHATASE 208 IU/L (46-116); ANION GAP 7 (8-16); ASPARTATE AMINO TRANSFERASE 28 U/L (10-37); BILIRUBIN,TOTAL 1.3 MG/DL (0.1-1.0); BLOOD UREA NITROGEN 22 MG/DL (7-18); BUN/CREATININE RATIO 18.8 (5.4-32.0); CALCIUM 8.2 MG/DL (8.5-10.1); CHLORIDE 103 MMOL/L (99-107); CREATININE 1.17 MG/DL (0.60-1.10); GLUCOSE 121 MG/DL (70-104); POTASSIUM 4.3 MMOL/L (3.5-5.1); SODIUM 138 MMOL/L (135-145); TOTAL CARBON DIOXIDE 27.7 MMOL/L (24-32); TOTAL PROTEIN 7.5 G/DL (6.4-8.2); eGFR 64 ML/MIN
[2019-01-26 06:21] LABS: PHOSPHORUS 3.9 MG/DL (2.3-4.5)
[2019-01-26 06:26] LABS: BASOPHILS # (AUTO) 0.1 X10'3 (0-0.2); BASOPHILS % (AUTO) 1.3 % (0-1); EOSINOPHILS # (AUTO) 0.2 X10'3 (0-0.9); EOSINOPHILS % (AUTO) 3.6 % (0-6); HEMATOCRIT 29.5 % (42.0-52.0); LYMPHOCYTES # (AUTO) 1.1 X10'3 (1.1-4.8); LYMPHOCYTES % (AUTO) 23.8 % (21-51); MEAN CORPUSCULAR HEMOGLOBIN 23.4 PG (27.0-31.0); MEAN CORPUSCULAR HGB CONC 30.6 g/dL (33.0-36.5); MEAN CORPUSCULAR VOLUME 76.4 FL (78-98); MEAN PLATELET VOLUME 7.3 FL (7.4-10.4); MONOCYTES # (AUTO) 0.6 X10'3 (0-0.9); MONOCYTES % (AUTO) 12.8 % (2-12); NEUTROPHILS # (AUTO) 2.7 X10'3 (1.8-7.7); NEUTROPHILS % (AUTO) 58.5 % (42-75); PLATELET COUNT 288 X10'3 (140-440); RED BLOOD COUNT 3.86 X10'6 (4.70-6.10); RED CELL DISTRIBUTION WIDTH 25.4 % (11.5-14.5); WHITE BLOOD COUNT 4.6 X10'3 (4.5-11.0)
--- NOTE | 2019-01-26 06:53 | NUR ---
Problems reprioritized. Patient report given,Kassi BRITO questions answered & plan of care reviewed with . bedside reported completed. pt asleep. bed alarm on. no distress noted.
[2019-01-26] MEDS: ipratropium/albuterol 3ml nebule NEB SCH ×5 (07:16→23:00)
[2019-01-26 07:17] LABS: ANISOCYTOSIS 3+; MICROCYTOSIS 1+; PLATELET ESTIMATE NORMAL
[2019-01-26 07:18] LABS: BURR CELLS FEW; HYPOCHROMASIA 1+; POLYCHROMASIA FEW; SCHISTOCYTES FEW
[2019-01-26] MEDS: K and/or MAG REPLACEMENT MC SCH (08:00)
[2019-01-26] MEDS: docusate sod 100mg capsule PO SCH ×2 (09:13→21:07)
[2019-01-26] MEDS: furosemide 40mg/4ml inj IV SCH ×2 (09:13→20:00)
[2019-01-26] MEDS: atorvastatin 20mg tablet PO SCH (09:13)
[2019-01-26] MEDS: lisinopril 5mg tablet PO SCH (09:14)
[2019-01-26] MEDS: carvedilol 6.25mg tablet PO SCH ×2 (09:14→20:00)
[2019-01-26] MEDS: aspirin 81mg tab.chew PO SCH (09:14)
[2019-01-26 11:20] LABS: BFSOURCE LEFT PLEURAL FLD; PLEURAL FLUID PH 7.384 (7.63-7.65)
[2019-01-26 11:25] LABS: GLUCOSE,BODY FLUID 108 MG/DL; LDH,BODY FLUID 50 U/L
[2019-01-26 11:33] LABS: BFAPPEAR HAZY
[2019-01-26 11:34] LABS: BF RBC COUNT 680 /CU MM; BF WBC COUNT 250 /CU MM (0-1000); BFCOLOR YELLOW; BFVOLUME 60 ML
[2019-01-26 11:43] LABS: BF MESOTHELIAL CELLS FEW; LYMPHOCYTES,BODY FLUID 17 %; MONOCYTES,BODY FLUID 73 %; NEUTROPHILS,BODY FLUID 10 %
[2019-01-26 11:46] LABS: TOTAL PROTEIN,BODY FLUID < 2.0 G/DL
--- NOTE | 2019-01-26 20:28 | NUR ---
Notified Dr. Rosario of patient's BP remaining 90s/50s and orders for Lasix & Coreg to be held for SBP less than 100. stated to go ahead and hold medications due to decreased BP
[2019-01-26] MEDS: temazepam 15mg capsule PO PRN (23:12)
[2019-01-27 03:00] VITALS: BP 99/61
[2019-01-27 05:19] LABS: ALANINE AMINOTRANSFERASE 28 U/L (12-78); ALBUMIN 2.5 G/DL (3.4-5.0); ALBUMIN/GLOBULIN RATIO 0.5 (1.1-1.5); ALKALINE PHOSPHATASE 206 IU/L (46-116); ANION GAP 9 (8-16); ASPARTATE AMINO TRANSFERASE 30 U/L (10-37); BILIRUBIN,TOTAL 1.2 MG/DL (0.1-1.0); BLOOD UREA NITROGEN 24 MG/DL (7-18); BUN/CREATININE RATIO 23.8 (5.4-32.0); CALCIUM 7.8 MG/DL (8.5-10.1); CHLORIDE 103 MMOL/L (99-107); CREATININE 1.01 MG/DL (0.60-1.10); GLUCOSE 76 MG/DL (70-104); MAGNESIUM 1.9 MG/DL (1.5-2.4); PHOSPHORUS 3.5 MG/DL (2.3-4.5); POTASSIUM 4.5 MMOL/L (3.5-5.1); SODIUM 137 MMOL/L (135-145); TOTAL CARBON DIOXIDE 24.7 MMOL/L (24-32); TOTAL PROTEIN 7.1 G/DL (6.4-8.2); eGFR 76 ML/MIN
[2019-01-27 05:22] LABS: BASOPHILS # (AUTO) 0.1 X10'3 (0-0.2); EOSINOPHILS # (AUTO) 0.1 X10'3 (0-0.9); HEMOGLOBIN 9.4 g/dl (14.0-17.9); MEAN CORPUSCULAR HEMOGLOBIN 23.1 PG (27.0-31.0); MONOCYTES # (AUTO) 0.5 X10'3 (0-0.9)
[2019-01-27 05:24] LABS: BASOPHILS % (AUTO) 1.3 % (0-1); EOSINOPHILS % (AUTO) 2.8 % (0-6); HEMATOCRIT 30.6 % (42.0-52.0); LYMPHOCYTES # (AUTO) 1.3 X10'3 (1.1-4.8); LYMPHOCYTES % (AUTO) 24.3 % (21-51); MEAN CORPUSCULAR HGB CONC 30.6 g/dL (33.0-36.5); MEAN CORPUSCULAR VOLUME 75.5 FL (78-98); MEAN PLATELET VOLUME 8.5 FL (7.4-10.4); MONOCYTES % (AUTO) 10.4 % (2-12); NEUTROPHILS # (AUTO) 3.2 X10'3 (1.8-7.7); NEUTROPHILS % (AUTO) 61.2 % (42-75); PLATELET COUNT 332 X10'3 (140-440); RED BLOOD COUNT 4.06 X10'6 (4.70-6.10); RED CELL DISTRIBUTION WIDTH 24.7 % (11.5-14.5); WHITE BLOOD COUNT 5.2 X10'3 (4.5-11.0)
[2019-01-27 06:00] VITALS: BP 105/71
--- NOTE | 2019-01-27 06:00 | NUR ---
Patient in room PCU 3027. I have received report from Ivonne BRITO and had the opportunity to ask questions and assume patient care.
--- NOTE | 2019-01-27 06:28 | NUR ---
Problems reprioritized. Patient report given, questions answered & plan of care reviewed with Karissa BRITO & Vonnie BRITO.
[2019-01-27] MEDS: K and/or MAG REPLACEMENT MC SCH (08:00)
[2019-01-27] MEDS: ipratropium/albuterol 3ml nebule NEB SCH ×5 (08:24→23:00)
[2019-01-27] MEDS: atorvastatin 20mg tablet PO SCH (10:11)
[2019-01-27] MEDS: docusate sod 100mg capsule PO SCH ×2 (10:11→20:58)
[2019-01-27] MEDS: lisinopril 5mg tablet PO SCH (10:12)
[2019-01-27] MEDS: aspirin 81mg tab.chew PO SCH (10:12)
[2019-01-27] MEDS: carvedilol 6.25mg tablet PO SCH ×2 (10:12→20:00)
[2019-01-27] MEDS: furosemide 40mg/4ml inj IV SCH ×2 (10:13→20:00)
[2019-01-27 11:00] VITALS: BP 112/81
--- NOTE | 2019-01-27 15:30 | NUR ---
Per pt, roommate Robyn would know about LifeVest and would be able to bring it to the hospital. Attempt made to contact Robyn via phone number on file [phone], no answer, no message system available. Will notify primary RN of attempt. Will retry to contact Robyn at a later time.
[2019-01-27 18:00] VITALS: BP 101/70
--- NOTE | 2019-01-27 18:00 | NUR ---
Problems reprioritized. Patient report given, questions answered & plan of care reviewed with Ivonne BRITO.
[2019-01-27 23:00] VITALS: BP 101/56
[2019-01-28 02:00] VITALS: BP 105/57
[2019-01-28 05:59] LABS: WHITE BLOOD COUNT 5.8 X10'3 (4.5-11.0)
[2019-01-28 06:00] LABS: HEMATOCRIT 30.2 % (42.0-52.0); HEMOGLOBIN 8.9 g/dl (14.0-17.9); MEAN CORPUSCULAR HEMOGLOBIN 22.4 PG (27.0-31.0); MEAN CORPUSCULAR HGB CONC 29.7 g/dL (33.0-36.5); MEAN CORPUSCULAR VOLUME 75.6 FL (78-98); MEAN PLATELET VOLUME 7.3 FL (7.4-10.4); PLATELET COUNT 283 X10'3 (140-440); RED BLOOD COUNT 3.99 X10'6 (4.70-6.10); RED CELL DISTRIBUTION WIDTH 24.4 % (11.5-14.5)
--- NOTE | 2019-01-28 06:00 | NUR ---
Patient in room PCU 3027. I have received report from Ivonne BRITO and had the opportunity to ask questions and assume patient care.
--- NOTE | 2019-01-28 06:01 | NUR ---
[place] Medication Administration: For this medication-pass time frame, all medication were reviewed, dispensed, administered and documented per hospital policy by Fabiola BRITO. [place] documentation: I have reviewed and agree with all interventions, assessments performed and documented by Fabiola BRITO.
--- NOTE | 2019-01-28 06:01 | NUR ---
Patient in room PCU 3027. I have received report from ALISHA Blackman and had the opportunity to ask questions and assume patient care.
[2019-01-28 06:07] LABS: ALANINE AMINOTRANSFERASE 25 U/L (12-78); ALBUMIN 2.3 G/DL (3.4-5.0); ALBUMIN/GLOBULIN RATIO 0.5 (1.1-1.5); ALKALINE PHOSPHATASE 192 IU/L (46-116); ANION GAP 3 (8-16); ASPARTATE AMINO TRANSFERASE 30 U/L (10-37); BILIRUBIN,TOTAL 1.1 MG/DL (0.1-1.0); BLOOD UREA NITROGEN 22 MG/DL (7-18); BUN/CREATININE RATIO 18.3 (5.4-32.0); CHLORIDE 101 MMOL/L (99-107); GLUCOSE 89 MG/DL (70-104); MAGNESIUM 1.9 MG/DL (1.5-2.4); PHOSPHORUS 3.2 MG/DL (2.3-4.5); POTASSIUM 4.8 MMOL/L (3.5-5.1); SODIUM 136 MMOL/L (135-145); TOTAL CARBON DIOXIDE 31.9 MMOL/L (24-32); TOTAL PROTEIN 6.9 G/DL (6.4-8.2); eGFR 63 ML/MIN
--- NOTE | 2019-01-28 06:12 | NUR ---
Problems reprioritized. Patient report given, questions answered & plan of care reviewed with Hiral BRITO.
[2019-01-28 07:09] LABS: PLATELET ESTIMATE NORMAL; TOTAL CELLS COUNTED 100
[2019-01-28 07:10] LABS: ANISOCYTOSIS 3+; LARGE PLATELETS FEW; MICROCYTOSIS 1+; POIKILOCYTOSIS FEW; POLYCHROMASIA FEW; TARGET CELLS FEW
[2019-01-28] MEDS: ipratropium/albuterol 3ml nebule NEB SCH ×2 (07:42→11:09)
[2019-01-28] MEDS: K and/or MAG REPLACEMENT MC SCH (08:00)
[2019-01-28] MEDS: docusate sod 100mg capsule PO SCH (09:09)
[2019-01-28] MEDS: aspirin 81mg tab.chew PO SCH (09:09)
[2019-01-28] MEDS: carvedilol 6.25mg tablet PO SCH (09:10)
[2019-01-28] MEDS: atorvastatin 20mg tablet PO SCH (09:10)
[2019-01-28] MEDS: furosemide 40mg/4ml inj IV SCH (09:15)
[2019-01-28] MEDS: lisinopril 5mg tablet PO SCH (09:15)
[2019-01-28 09:41] LABS: LACTATE DEHYDROGENASE 135 U/L (85-227)
[2019-01-28 10:28] LABS: OSMOLALITY 291 MOSM/K (280-300)
[2019-01-28] MEDS ORDERED: ATOR20TA66 PO (14:22)
--- NOTE | 2019-01-28 16:05 | NUR ---
Patient discharged stable to home. Reports his life vest is on the building insulation supervisor at home and he will put it on as soon as he gets there. Reports he already has a primary care doctor appointment next week. Arrived in room to find his PIV out and he stated "the nurse took it out" there was a cotton ball and paper tape applied to the area where the PIV was. Tele box was removed by patient. Returned tele box to tech room. All personal belongings returned to patient. Discharge instructions given to patient verbally and written. Prescription phoned to [facility] on [address] in [place] at pt's request. Patient walked out with staff to lobby to await taxi ride home.
== END 2019-01-28 16:53 | disposition home health service (06) | DRG 291 ==
LOC: ER 16:30 → ED HOLD 18:17 → PCU 3S 20:21
PROVIDERS: ADMIT Family Medicine; ATTEND Internal Medicine
PROC: 0W9B3ZX Drainage of Left Pleural Cavity, Percutaneous Approach, Diagnostic (ICD-10-PCS; principal; 2019-01-26)
DX: I13.0 Hypertensive heart and chronic kidney disease with heart failure and stage 1 through stage 4 chronic kidney disease, or unspecified chronic kidney disease (principal); I50.23 Acute on chronic systolic (congestive) heart failure; J91.8 Pleural effusion in other conditions classified elsewhere; I42.7 Cardiomyopathy due to drug and external agent; E87.5 Hyperkalemia; F15.90 Other stimulant use, unspecified, uncomplicated; R06.03 Acute respiratory distress; T43.625A Adverse effect of amphetamines, initial encounter; R74.0 Nonspecific elevation of levels of transaminase and lactic acid dehydrogenase [LDH]; D63.8 Anemia in other chronic diseases classified elsewhere; E87.6 Hypokalemia; J44.9 Chronic obstructive pulmonary disease, unspecified; N18.3 Chronic kidney disease, stage 3 (moderate); F17.200 Nicotine dependence, unspecified, uncomplicated; Z91.14 Patient's other noncompliance with medication regimen; I25.2 Old myocardial infarction; Z91.19 Patient's noncompliance with other medical treatment and regimen; Y92.89 Other specified places as the place of occurrence of the external cause; Z79.82 Long term (current) use of aspirin; Z79.899 Other long term (current) drug therapy
CPT/HCPCS: 32555; 36415; 71045; 80053; 80305; 82945; 83615; 83735; 83880; 83930; 83986; 84100; 84157; 84484; 85025; 85610; 85730; 87070; 87081; 88108; 88305; 89051; 93005; 94640; 94667; 94760; 96374; 97110; 97112; 97116; 97161; 97530; 99285; G0378; J1940

== ENCOUNTER 2019-02-15 14:58 | Emergency (ER) | payer MEDICARE, OTHER ==
[~2019-02-15] VITALS: Ht 177.8 cm; Wt 98.2 kg
[~2019-02-15 14:58] MED LIST changes: -ASPI-1265 PO; +ASPI-611 PO; +CARV6.252 PO; -CARV6.253 PO; -EPIN11.7 INH; -FERR325T28 PO; +FURO-149 PO; -FURO80TA3 PO; +LISI-604 PO; -LISI-642 PO; -PANT40TA4 PO; -SPIR25TA PO
[2019-02-15 15:45] LABS: BASOPHILS # (AUTO) 0.1 X10'3 (0-0.2); BASOPHILS % (AUTO) 1.6 % (0-1); EOSINOPHILS # (AUTO) 0.1 X10'3 (0-0.9); EOSINOPHILS % (AUTO) 2.5 % (0-6); HEMATOCRIT 26.6 % (42.0-52.0); HEMOGLOBIN 8.2 g/dl (14.0-17.9); LYMPHOCYTES # (AUTO) 1.4 X10'3 (1.1-4.8); LYMPHOCYTES % (AUTO) 27.9 % (21-51); MEAN CORPUSCULAR HEMOGLOBIN 22.3 PG (27.0-31.0); MEAN CORPUSCULAR HGB CONC 30.8 g/dL (33.0-36.5); MEAN CORPUSCULAR VOLUME 72.4 FL (78-98); MEAN PLATELET VOLUME 6.9 FL (7.4-10.4); MONOCYTES # (AUTO) 0.6 X10'3 (0-0.9); MONOCYTES % (AUTO) 12.6 % (2-12); NEUTROPHILS # (AUTO) 2.8 X10'3 (1.8-7.7); NEUTROPHILS % (AUTO) 55.4 % (42-75); PLATELET COUNT 357 X10'3 (140-440); RED BLOOD COUNT 3.68 X10'6 (4.70-6.10); RED CELL DISTRIBUTION WIDTH 21.3 % (11.5-14.5)
[2019-02-15 15:54] LABS: PARTIAL THROMBOPLASTIN TIME 26 SECONDS (22-32)
[2019-02-15 15:57] LABS: ALANINE AMINOTRANSFERASE 18 U/L (12-78); ALBUMIN 2.7 G/DL (3.4-5.0); ALBUMIN/GLOBULIN RATIO 0.5 (1.1-1.5); ALKALINE PHOSPHATASE 235 IU/L (46-116); ANION GAP 6 (8-16); ASPARTATE AMINO TRANSFERASE 25 U/L (10-37); BLOOD UREA NITROGEN 34 MG/DL (7-18); BUN/CREATININE RATIO 36.6 (5.4-32.0); CALCIUM 8.4 MG/DL (8.5-10.1); CHLORIDE 103 MMOL/L (99-107); CREATININE 0.93 MG/DL (0.60-1.10); GLUCOSE 79 MG/DL (70-104); POTASSIUM 4.6 MMOL/L (3.5-5.1); SODIUM 137 MMOL/L (135-145); TOTAL CARBON DIOXIDE 27.7 MMOL/L (24-32); TOTAL PROTEIN 8.1 G/DL (6.4-8.2); eGFR 84 ML/MIN
[2019-02-15] MEDS ORDERED: ipratropium/albuterol 3ml nebule NEB STA (17:08)
--- NOTE | 2019-02-15 17:18 | NUR ---
DR BLOOD AT BEDSIDE FOR THORACENTESIS.
--- NOTE | 2019-02-15 17:27 | NUR ---
THORACENTESIS COMPLETED, 1L FLUID REMOVED. PT TOLERATED WELL.
[2019-02-15 17:28] VITALS: BP 108/51
[2019-02-15 17:43] LABS: ANISOCYTOSIS 3+; MICROCYTOSIS 1+; PLATELET ESTIMATE NORMAL
[2019-02-15 17:44] LABS: HYPOCHROMASIA 2+; SCHISTOCYTES FEW
[2019-02-15 17:45] LABS: POLYCHROMASIA FEW
== END 2019-02-15 18:05 | disposition home or self-care (01) ==
LOC: ER 14:59
DX: J90 Pleural effusion, not elsewhere classified (principal); R06.03 Acute respiratory distress; J44.9 Chronic obstructive pulmonary disease, unspecified; I50.9 Heart failure, unspecified; F17.200 Nicotine dependence, unspecified, uncomplicated; F15.90 Other stimulant use, unspecified, uncomplicated; Z86.2 Personal history of diseases of the blood and blood-forming organs and certain disorders involving the immune mechanism; Z79.82 Long term (current) use of aspirin; Z79.899 Other long term (current) drug therapy
CPT/HCPCS: 32555; 36415; 71045; 80053; 84484; 85025; 85610; 85730; 93005; 94640; 94760; 99285

== ENCOUNTER 2019-02-16 19:18 | Emergency (ER) | payer MEDICARE, OTHER ==
[~2019-02-16] VITALS: Ht 177.8 cm; Wt 99.0 kg
[2019-02-16 20:01] LABS: BASOPHILS # (AUTO) 0.1 X10'3 (0-0.2); BASOPHILS % (AUTO) 1.4 % (0-1); EOSINOPHILS % (AUTO) 0.8 % (0-6); HEMATOCRIT 26.5 % (42.0-52.0); HEMOGLOBIN 8.2 g/dl (14.0-17.9); LYMPHOCYTES # (AUTO) 1.2 X10'3 (1.1-4.8); LYMPHOCYTES % (AUTO) 20.5 % (21-51); MEAN CORPUSCULAR HEMOGLOBIN 22.3 PG (27.0-31.0); MEAN CORPUSCULAR HGB CONC 30.9 g/dL (33.0-36.5); MEAN PLATELET VOLUME 7.4 FL (7.4-10.4); MONOCYTES # (AUTO) 0.8 X10'3 (0-0.9); MONOCYTES % (AUTO) 13.3 % (2-12); NEUTROPHILS # (AUTO) 3.7 X10'3 (1.8-7.7); PLATELET COUNT 393 X10'3 (140-440); RED BLOOD COUNT 3.68 X10'6 (4.70-6.10); RED CELL DISTRIBUTION WIDTH 21.4 % (11.5-14.5); WHITE BLOOD COUNT 5.8 X10'3 (4.5-11.0)
[2019-02-16 20:07] LABS: ALANINE AMINOTRANSFERASE 20 U/L (12-78); ALBUMIN 2.8 G/DL (3.4-5.0); ALBUMIN/GLOBULIN RATIO 0.5 (1.1-1.5); ALKALINE PHOSPHATASE 233 IU/L (46-116); ANION GAP 8 (8-16); ASPARTATE AMINO TRANSFERASE 27 U/L (10-37); BILIRUBIN,TOTAL 1.2 MG/DL (0.1-1.0); BLOOD UREA NITROGEN 34 MG/DL (7-18); CALCIUM 8.5 MG/DL (8.5-10.1); CHLORIDE 101 MMOL/L (99-107); GLUCOSE 86 MG/DL (70-104); POTASSIUM 4.5 MMOL/L (3.5-5.1); SODIUM 137 MMOL/L (135-145); TOTAL CARBON DIOXIDE 27.9 MMOL/L (24-32); TOTAL PROTEIN 8.1 G/DL (6.4-8.2); eGFR 77 ML/MIN
[2019-02-16 20:29] LABS: PLATELET ESTIMATE NORMAL
[2019-02-16 20:30] LABS: ANISOCYTOSIS 3+; MICROCYTOSIS 1+
[2019-02-16 20:31] LABS: HYPOCHROMASIA 1+; POLYCHROMASIA 1+; SCHISTOCYTES 1+; STOMATOCYTES FEW
[2019-02-16 20:50] VITALS: BP 114/78
[2019-02-17] MEDS ORDERED: FURO80TA3 PO (15:20)
[2019-02-17] MEDS ORDERED: ATOR20TA66 PO (15:21)
== END 2019-02-16 20:59 | disposition home or self-care (01) ==
LOC: ER 19:19
DX: R07.9 Chest pain, unspecified (principal); R06.02 Shortness of breath; J44.9 Chronic obstructive pulmonary disease, unspecified; I50.9 Heart failure, unspecified; F15.90 Other stimulant use, unspecified, uncomplicated; Z79.82 Long term (current) use of aspirin; Z79.899 Other long term (current) drug therapy
CPT/HCPCS: 36415; 71045; 80053; 84484; 85025; 93005; 99284

== ENCOUNTER 2019-02-17 15:05 | Inpatient (IN) | payer MEDICARE, OTHER ==
[~2019-02-17] VITALS: Ht 177.8 cm; Wt 99.0 kg
[2019-02-17] MEDS ORDERED: nitroGLYCERIN 0.4mg SUBLingual tab SL PRN (15:10)
[2019-02-17] MEDS ORDERED: FURO80TA3 PO (15:20)
[2019-02-17] MEDS ORDERED: ATOR20TA66 PO (15:21)
[2019-02-17 15:29] LABS: HEMATOCRIT 27.9 % (42.0-52.0); HEMOGLOBIN 8.5 g/dl (14.0-17.9); LYMPHOCYTES # (AUTO) 1.1 X10'3 (1.1-4.8); LYMPHOCYTES % (AUTO) 23.4 % (21-51); MEAN CORPUSCULAR HEMOGLOBIN 22.1 PG (27.0-31.0); MEAN CORPUSCULAR HGB CONC 30.3 g/dL (33.0-36.5); MEAN PLATELET VOLUME 6.9 FL (7.4-10.4); MONOCYTES # (AUTO) 0.5 X10'3 (0-0.9); MONOCYTES % (AUTO) 11.4 % (2-12); NEUTROPHILS % (AUTO) 63.2 % (42-75); PLATELET COUNT 337 X10'3 (140-440); RED BLOOD COUNT 3.82 X10'6 (4.70-6.10); RED CELL DISTRIBUTION WIDTH 21.1 % (11.5-14.5); WHITE BLOOD COUNT 4.8 X10'3 (4.5-11.0)
[2019-02-17 15:34] LABS: PARTIAL THROMBOPLASTIN TIME 30 SECONDS (22-32)
[2019-02-17 15:35] LABS: ALANINE AMINOTRANSFERASE 15 U/L (12-78); ALBUMIN 2.5 G/DL (3.4-5.0); ALBUMIN/GLOBULIN RATIO 0.5 (1.1-1.5); ALKALINE PHOSPHATASE 222 IU/L (46-116); ANION GAP 7 (8-16); ASPARTATE AMINO TRANSFERASE 26 U/L (10-37); BILIRUBIN,TOTAL 1.3 MG/DL (0.1-1.0); BLOOD UREA NITROGEN 31 MG/DL (7-18); BUN/CREATININE RATIO 32.3 (5.4-32.0); CALCIUM 8.1 MG/DL (8.5-10.1); CHLORIDE 105 MMOL/L (99-107); CREATININE 0.96 MG/DL (0.60-1.10); GLUCOSE 117 MG/DL (70-104); POTASSIUM 4.6 MMOL/L (3.5-5.1); SODIUM 138 MMOL/L (135-145); TOTAL CARBON DIOXIDE 25.9 MMOL/L (24-32); TOTAL PROTEIN 7.4 G/DL (6.4-8.2); eGFR 81 ML/MIN
[2019-02-17 15:36] LABS: ABG BASE EXCESS 1.1 mmol/L (-2.0-3.0); ABG HCO3 24.6 mmol/L (22.0-26.0); ABG OXYGEN SATURATION 97.9 % (95-98); ABG PCO2 (T) 34.8 mmHg (35.0-45.0); ABG PH (T) 7.467 (7.350-7.450); ABG PO2 (T) 106.5 mmHg (83-108); ALLEN'S TEST Positive; FCOHb 0.8 % (0.5-1.5); FLOW 2 L/min; FMetHb 0.2 % (0.3-1.12); FO2Hb 96.9 % (94-100); TOTAL HEMOGLOBIN 9.5 G/dl (14.0-17.9)
[2019-02-17 17:02] LABS: ANISOCYTOSIS 3+; HYPOCHROMASIA 1+; MICROCYTOSIS 1+; PLATELET ESTIMATE NORMAL
[2019-02-17 17:03] LABS: POLYCHROMASIA FEW
[2019-02-17 17:04] LABS: ELLIPTOCYTES FEW; ROULEAUX 1+; SCHISTOCYTES 1+; SPHEROCYTES FEW; TARGET CELLS FEW; TEAR DROP CELLS FEW
[2019-02-17 17:05] LABS: BURR CELLS FEW
[2019-02-17] MEDS ORDERED: furosemide 10 MG/1 ML 10ml inj IV ONE (17:20)
[2019-02-17] MEDS ORDERED: aspirin 81mg tab.chew PO ONE (17:35)
[2019-02-17] MEDS ORDERED: normal saline 1000ml 1,000 ML IV SCH (17:36)
--- NOTE | 2019-02-17 17:36 | NUR ---
Shalom muñoz in ED - 02/17/19 at 1737 by KIRSTIN PATIENT LAYING ON LEFT BUT ON ALL FOURS AND IS NOT TURNING OVER TO TALK TO THE HAOSPITALIST
[2019-02-17] MEDS ORDERED: HYDROcodone/acetaminophen 5mg/325mg tablet PO PRN (17:40)
[2019-02-17] MEDS ORDERED: magnesium 4gm in 100ml NS 100 ML IV PRN (17:40)
[2019-02-17] MEDS ORDERED: potassium CL 10mEq/100ml bag 100 ML IV PRN ×2 (17:40)
[2019-02-17] MEDS ORDERED: morphine 2 MG/ML inj. syringe IV PRN (17:40)
[2019-02-17] MEDS ORDERED: magnesium Cl slow-release 64mg tablet PO PRN (17:40)
[2019-02-17] MEDS ORDERED: ondansetron/PF 4mg/2ml inj IV PRN (17:40)
[2019-02-17] MEDS ORDERED: magnesium 2GM in 50ml NS 50 ML IV PRN (17:40)
[2019-02-17] MEDS ORDERED: potassium Cl 20 mEq SR tablet PO PRN ×2 (17:40)
[2019-02-17] MEDS ORDERED: mag hydrox/Alum hydrox/simeth 30ml oral suspension PO PRN (17:40)
[2019-02-17] MEDS ORDERED: acetaminophen 325mg tablet PO PRN ×2 (17:40)
--- NOTE | 2019-02-17 17:49 | NUR ---
PATIENT STANDING LEANING ON BED, TOOK OXYGEN OFF WELL SPO2 MONITOR
--- NOTE | 2019-02-17 17:50 | NUR ---
NOTE AT 1736 SHOULD NOT BE UNDONE
--- NOTE | 2019-02-17 17:52 | NUR ---
PATIENT REFUSING TO SIT DOWN FOR BLOOD DRAW. I ASKED HIME TO HELP HIM HELP HIMSELF BY SITTING FOR A FEW MINUTES HE WAS SITTING LWEANING FORWARD FOR 1 HOUR PREVIOUSLY
--- NOTE | 2019-02-17 17:53 | NUR ---
PATIENT CALLED ME "A FUCKING BITCH" AFTER I ASKED HIM TO SIT DOWN FOR BLOOD DRAW
[2019-02-17 17:56] LABS: CLARITY,URINE CLEAR (Clear); COLOR,URINE YELLOW (Yellow); GLUCOSE, URINE NEGATIVE (Neg); KETONES,URINE NEGATIVE (Neg); LEUKOCYTE ESTERASE ,URINE NEGATIVE (Neg); NITRITES, URINE NEGATIVE (Neg); OCCULT BLOOD,URINE NEGATIVE (Neg); PROTEIN,URINE TRACE mg/dl (Neg)
[2019-02-17 17:57] LABS: UA COLLECTION TYPE CLN CATCH MIDSTREAM
--- NOTE | 2019-02-17 18:00 | NUR ---
PATIENT REFUSED TO BEHOOKED UP TO AN IV BECAUSE HE IS MOVING ALL OVER THE ROOM, ON ALL FOURS, ETC
[2019-02-17 18:08] LABS: HYALINE CASTS 0-3 /LPF (NEGATIVE); MUCUS STRANDS FEW /LPF (Neg); SQUAMOUS EPITHELIAL CELL,UR NONE SEEN /LPF (FEW)
[2019-02-17 18:09] LABS: BACTERIA,URINE NONE SEEN /HPF (Neg); RBC,URINE 0-2 /HPF (0-2); WBC,URINE 0-4 /HPF (0-4)
--- NOTE | 2019-02-17 18:45 | NUR ---
Patient in room PCU 3018. I have received report from Mary BRITO and had the opportunity to ask questions and assume patient care.
[2019-02-17 19:00] VITALS: BP 127/83
[2019-02-17] MEDS: heparin, porcine 5000 units/ml vial SQ SCH (20:59)
[2019-02-17] MEDS: docusate sod 100mg capsule PO SCH (21:00)
[2019-02-17] MEDS ORDERED: temazepam 15mg capsule PO PRN (21:00)
[2019-02-17 22:00] VITALS: BP 125/86
--- NOTE | 2019-02-18 00:57 | NUR ---
Patient is non-compliant with his call light. He states he does not feel steady on his feet, however, while providing education to patient he is not receptive to it and asks to be left alone. He is alert and oriented X4.
[2019-02-18 02:00] VITALS: BP 98/72
--- NOTE | 2019-02-18 03:45 | NUR ---
pt wants a breathing treatment, and SOB. No breathing treament was ordered. Notified Dr. Brooke he gave a Lasix 40mg IV once
[2019-02-18] MEDS ORDERED: furosemide 40mg/4ml inj IV ONE (03:50)
--- NOTE | 2019-02-18 05:13 | NUR ---
pt tolerated fine with lasix IV 40mg once and able to go to sleep
--- NOTE | 2019-02-18 06:00 | NUR ---
Patient in room PCU 3018. I have received report from ALISHA Faria and had the opportunity to ask questions and assume patient care.
[2019-02-18 06:14] LABS: HEMOGLOBIN 9.1 g/dl (14.0-17.9)
[2019-02-18 06:17] LABS: HEMATOCRIT 29.1 % (42.0-52.0); MEAN CORPUSCULAR HEMOGLOBIN 22.7 PG (27.0-31.0); MEAN CORPUSCULAR HGB CONC 31.2 g/dL (33.0-36.5); MEAN CORPUSCULAR VOLUME 72.6 FL (78-98); MEAN PLATELET VOLUME 7.4 FL (7.4-10.4); PLATELET COUNT 376 X10'3 (140-440); RED BLOOD COUNT 4.01 X10'6 (4.70-6.10)
[2019-02-18 06:26] LABS: ALANINE AMINOTRANSFERASE 18 U/L (12-78); ALBUMIN/GLOBULIN RATIO 0.5 (1.1-1.5); ALKALINE PHOSPHATASE 249 IU/L (46-116); ANION GAP 9 (8-16); ASPARTATE AMINO TRANSFERASE 27 U/L (10-37); BILIRUBIN,TOTAL 1.3 MG/DL (0.1-1.0); BLOOD UREA NITROGEN 35 MG/DL (7-18); BUN/CREATININE RATIO 32.1 (5.4-32.0); CHLORIDE 101 MMOL/L (99-107); CREATININE 1.09 MG/DL (0.60-1.10); GLUCOSE 99 MG/DL (70-104); MAGNESIUM 2.1 MG/DL (1.5-2.4); POTASSIUM 4.6 MMOL/L (3.5-5.1); SODIUM 137 MMOL/L (135-145); TOTAL CARBON DIOXIDE 27.1 MMOL/L (24-32); TOTAL PROTEIN 8.8 G/DL (6.4-8.2); eGFR 70 ML/MIN
[2019-02-18 07:08] LABS: ANISOCYTOSIS 3+; HYPOCHROMASIA 1+; MICROCYTOSIS 1+; PLATELET ESTIMATE NORMAL; TOTAL CELLS COUNTED 100
[2019-02-18 07:09] LABS: LARGE PLATELETS FEW; POIKILOCYTOSIS FEW; POLYCHROMASIA FEW; SCHISTOCYTES FEW; TARGET CELLS FEW
[2019-02-18] MEDS: heparin, porcine 5000 units/ml vial SQ SCH ×2 (07:28→20:59)
[2019-02-18] MEDS: docusate sod 100mg capsule PO SCH ×2 (07:28→20:59)
[2019-02-18] MEDS: K and/or MAG REPLACEMENT MC SCH (07:28)
[2019-02-18] MEDS: furosemide 40mg/4ml inj IV SCH (07:28)
[2019-02-18 11:00] VITALS: BP 99/65
[2019-02-18 15:00] VITALS: BP 119/77
--- NOTE | 2019-02-18 15:37 | NUR ---
Saurabh Martinez Rm [id number] pt is requesting to be discharged ALISHA Hancock ext [phone] page to liam
--- NOTE | 2019-02-18 16:23 | NUR ---
Dr Corona states she will consider discharge tmrw. Let pt know of Dr Coleman wishes. He stated that would be ok. His wallet is missing . Staff has looked through belongings and have not found wallet. He has a Home Health Nurse who was phoned verified that she sent the wallet with him on the ambulance.
--- NOTE | 2019-02-18 18:05 | NUR ---
I SPOKE TO CINDY CUNNINGHAM RN. SHE ADMITTED PT TO FLOOR. SHE STATED THAT PT HAD REFUSED TO RELEASE WALLET TO SAFE. THE LAST TIME SHE SAW WALLET IT WAS SITTING ON PT BEDSIDE TABLE WITH HIS PT IDENTIFICATION ENROBER TENDER IT. Addendum: 02/18/19 at 1808 by Dana Delgadillo RN Amended: Links added.
--- NOTE | 2019-02-18 18:15 | NUR ---
Patient in room PCU 3018. I have received report from ALISHA Stinson and had the opportunity to ask questions and assume patient care.
--- NOTE | 2019-02-18 18:28 | NUR ---
Problems reprioritized. Patient report given, questions answered & plan of care reviewed with ALISHA Galo.
[2019-02-18 19:00] VITALS: BP 112/69
[2019-02-18] MEDS ORDERED: carvedilol 6.25mg tablet PO SCH (20:00)
--- NOTE | 2019-02-18 20:57 | NUR ---
PAGER ID: [phone] MESSAGE: Patient Jose Gonsalez in room 3018B is requesting a breathing tx. Pt does take albuterol at home. [facility] Jannette [phone]
[2019-02-18] MEDS: carvedilol 6.25mg tablet PO SCH (20:59)
[2019-02-18 22:00] VITALS: BP 101/67
[2019-02-19 03:00] VITALS: BP 106/74
[2019-02-19 05:46] LABS: ALANINE AMINOTRANSFERASE 16 U/L (12-78); ALBUMIN 2.4 G/DL (3.4-5.0); ALBUMIN/GLOBULIN RATIO 0.5 (1.1-1.5); ALKALINE PHOSPHATASE 210 IU/L (46-116); ANION GAP 7 (8-16); ASPARTATE AMINO TRANSFERASE 23 U/L (10-37); BILIRUBIN,TOTAL 1.1 MG/DL (0.1-1.0); BLOOD UREA NITROGEN 34 MG/DL (7-18); BUN/CREATININE RATIO 32.7 (5.4-32.0); CALCIUM 8.4 MG/DL (8.5-10.1); CHLORIDE 101 MMOL/L (99-107); CREATININE 1.04 MG/DL (0.60-1.10); GLUCOSE 107 MG/DL (70-104); POTASSIUM 4.1 MMOL/L (3.5-5.1); SODIUM 136 MMOL/L (135-145); TOTAL CARBON DIOXIDE 28.3 MMOL/L (24-32); TOTAL PROTEIN 7.1 G/DL (6.4-8.2); eGFR 74 ML/MIN
[2019-02-19 05:50] LABS: BASOPHILS # (AUTO) 0.1 X10'3 (0-0.2); BASOPHILS % (AUTO) 1.9 % (0-1); EOSINOPHILS # (AUTO) 0.1 X10'3 (0-0.9); EOSINOPHILS % (AUTO) 1.8 % (0-6); HEMATOCRIT 25.3 % (42.0-52.0); HEMOGLOBIN 7.7 g/dl (14.0-17.9); LYMPHOCYTES # (AUTO) 1.1 X10'3 (1.1-4.8); LYMPHOCYTES % (AUTO) 20.6 % (21-51); MEAN CORPUSCULAR HGB CONC 30.4 g/dL (33.0-36.5); MEAN CORPUSCULAR VOLUME 72.3 FL (78-98); MEAN PLATELET VOLUME 7.6 FL (7.4-10.4); MONOCYTES # (AUTO) 0.7 X10'3 (0-0.9); MONOCYTES % (AUTO) 13.9 % (2-12); NEUTROPHILS # (AUTO) 3.2 X10'3 (1.8-7.7); NEUTROPHILS % (AUTO) 61.8 % (42-75); PLATELET COUNT 326 X10'3 (140-440); RED CELL DISTRIBUTION WIDTH 21.3 % (11.5-14.5); WHITE BLOOD COUNT 5.2 X10'3 (4.5-11.0)
--- NOTE | 2019-02-19 06:37 | NUR ---
Patient in room PCU 3018. I have received report from thomas alarcon and had the opportunity to ask questions and assume patient care.
--- NOTE | 2019-02-19 06:38 | NUR ---
Problems reprioritized. Patient report given, questions answered & plan of care reviewed with ALISHA Barnes.
[2019-02-19 07:09] VITALS: BP 106/76
[2019-02-19] MEDS: docusate sod 100mg capsule PO SCH ×2 (07:15→20:09)
[2019-02-19] MEDS: carvedilol 6.25mg tablet PO SCH (07:15)
[2019-02-19] MEDS: furosemide 40mg/4ml inj IV SCH (07:15)
[2019-02-19] MEDS: atorvastatin 20mg tablet PO SCH (07:15)
[2019-02-19] MEDS: aspirin 81mg tablet.DR PO SCH (07:15)
[2019-02-19] MEDS: heparin, porcine 5000 units/ml vial SQ SCH ×2 (07:16→20:10)
[2019-02-19 07:25] LABS: ANISOCYTOSIS 3+; MICROCYTOSIS 1+; PLATELET ESTIMATE NORMAL
[2019-02-19 07:26] LABS: HYPOCHROMASIA 1+; POLYCHROMASIA FEW; SCHISTOCYTES FEW
[2019-02-19] MEDS ORDERED: losartan 25mg tablet PO SCH (08:00)
[2019-02-19] MEDS: K and/or MAG REPLACEMENT MC SCH (08:00)
[2019-02-19 11:30] VITALS: BP 80/50
--- NOTE | 2019-02-19 11:30 | NUR ---
DR. SAEED AWARE OF PATIENT'S MANUALLY TAKEN BP OF 80/50.
[2019-02-19] MEDS ORDERED: normal saline 1000ml 1,000 ML IV SCH (11:55)
--- NOTE | 2019-02-19 12:20 | NUR ---
patient returned to room 302. visitor in at patient bedside. Addendum: 02/19/19 at 1222 by Molly Andrews RN wrong patient.
--- NOTE | 2019-02-19 14:55 | NUR ---
request BP taken for Mr. Martinez and to page her with result. Addendum: 02/19/19 at 1508 by Wendi Castorena RN [phone] paged with BP result PAGER ID: [phone] MESSAGE: [id number] Herman Martinez BP 82/60 manual. Shankar [phone] Addendum: 02/19/19 at 1520 by Wendi Castorena RN [phone] Received return phone call from Dr Corona, will keep patient overnight and address medications. Please continue 30CC NS infusion through the night.
[2019-02-19 16:40] VITALS: BP 87/50
--- NOTE | 2019-02-19 17:39 | NUR ---
PATIENT IV INFILTRATED. IV DC'D. PATIENT EATING AND WANTING TO FINISH DINNER BEFORE HAVING ANOTHER IV INSERTED.
[2019-02-19 18:00] VITALS: BP 109/62
--- NOTE | 2019-02-19 18:10 | NUR ---
Patient in room PCU 3018B. I have received report from Molly. and had the opportunity to ask questions and assume patient care. Pt denies CP, SOB, dizziness, n/v . and rates pain 0/10. However, he emphasized that he had intermittent back pain. Pt has no IV in place.
[2019-02-19] MEDS: carVEDilol 3.125mg tablet PO SCH (20:00)
[2019-02-19 22:00] VITALS: BP 98/76
[2019-02-20 02:00] VITALS: BP 100/71
[2019-02-20 06:34] LABS: HEMATOCRIT 28.5 % (42.0-52.0); HEMOGLOBIN 8.7 g/dl (14.0-17.9); MEAN CORPUSCULAR HEMOGLOBIN 22.2 PG (27.0-31.0); MEAN CORPUSCULAR HGB CONC 30.5 g/dL (33.0-36.5); MEAN CORPUSCULAR VOLUME 72.7 FL (78-98); MEAN PLATELET VOLUME 7.4 FL (7.4-10.4); PLATELET COUNT 292 X10'3 (140-440); RED BLOOD COUNT 3.92 X10'6 (4.70-6.10); RED CELL DISTRIBUTION WIDTH 21.3 % (11.5-14.5); WHITE BLOOD COUNT 5.3 X10'3 (4.5-11.0)
--- NOTE | 2019-02-20 06:36 | NUR ---
Problems reprioritized. Patient report given, questions answered & plan of care reviewed with ALISHA Knight. Patient stable at shift change.
--- NOTE | 2019-02-20 06:39 | NUR ---
Patient in room PCU 3018. I have received report from Bhavana BRITO and had the opportunity to ask questions and assume patient care. Patient out of bed using urinal. No complaints at this time. All immediate needs met.
[2019-02-20 06:51] LABS: ALANINE AMINOTRANSFERASE 19 U/L (12-78); ALBUMIN 2.8 G/DL (3.4-5.0); ALBUMIN/GLOBULIN RATIO 0.5 (1.1-1.5); ALKALINE PHOSPHATASE 242 IU/L (46-116); ANION GAP 5 (8-16); ASPARTATE AMINO TRANSFERASE 34 U/L (10-37); BILIRUBIN,TOTAL 1.2 MG/DL (0.1-1.0); BLOOD UREA NITROGEN 34 MG/DL (7-18); BUN/CREATININE RATIO 39.1 (5.4-32.0); CALCIUM 8.6 MG/DL (8.5-10.1); CHLORIDE 99 MMOL/L (99-107); CREATININE 0.87 MG/DL (0.60-1.10); GLUCOSE 82 MG/DL (70-104); MAGNESIUM 2.1 MG/DL (1.5-2.4); SODIUM 132 MMOL/L (135-145); TOTAL CARBON DIOXIDE 28.4 MMOL/L (24-32); TOTAL PROTEIN 8.2 G/DL (6.4-8.2); eGFR > 90 ML/MIN
[2019-02-20 06:52] LABS: POTASSIUM 5.4 MMOL/L (3.5-5.1)
[2019-02-20 07:00] VITALS: BP 107/80
[2019-02-20 07:18] LABS: TOTAL CELLS COUNTED 100
[2019-02-20 07:19] LABS: ANISOCYTOSIS 3+; PLATELET ESTIMATE NORMAL
[2019-02-20 07:20] LABS: ELLIPTOCYTES FEW; HYPOCHROMASIA 2+; MICROCYTOSIS 2+; POLYCHROMASIA 1+; SCHISTOCYTES 1+; TEAR DROP CELLS FEW
[2019-02-20] MEDS ORDERED: losartan 25mg tablet PO SCH (08:00)
[2019-02-20] MEDS: furosemide 40mg/4ml inj IV SCH (08:33)
[2019-02-20] MEDS: atorvastatin 20mg tablet PO SCH (08:33)
[2019-02-20] MEDS: aspirin 81mg tablet.DR PO SCH (08:33)
[2019-02-20] MEDS: docusate sod 100mg capsule PO SCH (08:33)
[2019-02-20] MEDS: heparin, porcine 5000 units/ml vial SQ SCH (08:34)
[2019-02-20] MEDS ORDERED: furosemide 40mg/4ml inj IV ONE (08:45)
[2019-02-20] MEDS: carVEDilol 3.125mg tablet PO SCH (08:46)
--- NOTE | 2019-02-20 08:47 | NUR ---
Administered 3.125 mg Coreg PO. 2 patient identifiers used. Medication administration did not save in computer.
[2019-02-20 09:25] VITALS: BP 108/63
[2019-02-20 11:00] VITALS: BP 88/57
[2019-02-20 15:00] VITALS: BP 96/62
[2019-02-20] MEDS ORDERED: COR3.125T PO (15:38)
[2019-02-20] MEDS ORDERED: LOSA25TA41 PO (15:38)
[2019-02-20] MEDS ORDERED: FURO20TA4 PO (15:38)
--- NOTE | 2019-02-20 16:36 | NUR ---
PATIENT STATED " OK TO LET VARSHA KNOW THAT I AM OK AND WILL BE HEADING HOME AROUND 5:00PM"
--- NOTE | 2019-02-20 17:15 | NUR ---
Patient stable for discharger per MD orders. All discharge instructions reviewed with patient and all questions answered. New prescriptions called into [facility] on [address]. Patient educated on importance of follow up with PCP. Patient to make own appointment and see PCP in 3 days. PIV discontinued, cannula intact. Telemetry monitoring discontinued. Patient did not have a wallet in his room, nor was it stored with security. All patient belongings packed up and sent with patient. Patient transported to home via cab at the expense of [facility]. Patient wheeled to lobby by [facility].
== END 2019-02-20 17:15 | disposition home health service (06) | DRG 292 ==
LOC: ER 15:06 → ED HOLD 17:52 → PCU 3S 18:50 → OBSVTOIN 02-18 10:00
PROVIDERS: ADMIT Internal Medicine; ATTEND Internal Medicine
DX: I50.23 Acute on chronic systolic (congestive) heart failure (principal); I24.9 Acute ischemic heart disease, unspecified; F17.210 Nicotine dependence, cigarettes, uncomplicated; G89.29 Other chronic pain; J44.9 Chronic obstructive pulmonary disease, unspecified; Z66 Do not resuscitate; F15.90 Other stimulant use, unspecified, uncomplicated; M54.5 Low back pain; R06.03 Acute respiratory distress; Z79.899 Other long term (current) drug therapy; Z91.14 Patient's other noncompliance with medication regimen
CPT/HCPCS: 36415; 36600; 71045; 80053; 81001; 82803; 83735; 83880; 84484; 85018; 85025; 85610; 85730; 87081; 93005; 93308; 96374; 97116; 97161; 97530; 99285; G0378; J1644; J1940; J7030

== ENCOUNTER 2019-02-21 20:04 | Emergency (ER) | payer MEDICARE ==
[~2019-02-21] VITALS: Ht 177.8 cm; Wt 76.0 kg
[~2019-02-21 20:04] MED LIST changes: -CARV6.252 PO; +COR3.125T PO; -FURO-149 PO; +FURO20TA4 PO; -LISI-604 PO; +LOSA25TA41 PO; +atropine 0.1mg/ml 10ml syringe ONE; +epiNEPHrine 0.1mg/ml 10ml syringe ONE; +sodium bicarbonate (8.4%) 1 mEq/ml syringe ONE
[2019-02-21] MEDS ORDERED: FENTANYL-0.9 % NACL/PF 100 ML IV PRN (20:15)
[2019-02-21] MEDS ORDERED: midazolam 100mg in NS 100ml 100 ML IV PRN (20:15)
[2019-02-21 20:21] LABS: ABG BASE EXCESS -11.5 mmol/L (-2.0-3.0); ABG HCO3 19.7 mmol/L (22.0-26.0); ABG PCO2 (T) 79.9 mmHg (35.0-45.0); ABG PH (T) 7.009 (7.350-7.450); ABG PO2 (T) 90.4 mmHg (83-108); ALLEN'S TEST Positive; FCOHb 0.8 % (0.5-1.5); FLOW 15 L/min; FMetHb 0.5 % (0.3-1.12); FO2Hb 87.8 % (94-100); RESPIRATORY RATE (OBSERVED) 18 b/min
[2019-02-21] MEDS ORDERED: NORepinephrine 8mg/ 250ml NS 250 ML IV ONE (20:39)
[2019-02-21 20:51] LABS: BASOPHILS # (AUTO) 0.1 X10'3 (0-0.2); BASOPHILS % (AUTO) 0.8 % (0-1); EOSINOPHILS # (AUTO) 0.1 X10'3 (0-0.9); EOSINOPHILS % (AUTO) 0.7 % (0-6); HEMATOCRIT 25.8 % (42.0-52.0); HEMOGLOBIN 7.4 g/dl (14.0-17.9); LYMPHOCYTES # (AUTO) 3.3 X10'3 (1.1-4.8); LYMPHOCYTES % (AUTO) 32.9 % (21-51); MEAN CORPUSCULAR HGB CONC 28.7 g/dL (33.0-36.5); MEAN CORPUSCULAR VOLUME 76.7 FL (78-98); MEAN PLATELET VOLUME 7.5 FL (7.4-10.4); MONOCYTES # (AUTO) 0.8 X10'3 (0-0.9); MONOCYTES % (AUTO) 7.8 % (2-12); NEUTROPHILS # (AUTO) 5.8 X10'3 (1.8-7.7); NEUTROPHILS % (AUTO) 57.8 % (42-75); PLATELET COUNT 272 X10'3 (140-440); RED BLOOD COUNT 3.37 X10'6 (4.70-6.10); RED CELL DISTRIBUTION WIDTH 21.1 % (11.5-14.5)
[2019-02-21 21:03] LABS: PARTIAL THROMBOPLASTIN TIME 35 SECONDS (22-32)
[2019-02-21 21:05] LABS: ALANINE AMINOTRANSFERASE 17 U/L (12-78); ALBUMIN 2.5 G/DL (3.4-5.0); ALBUMIN/GLOBULIN RATIO 0.5 (1.1-1.5); ALKALINE PHOSPHATASE 239 IU/L (46-116); ANION GAP 13 (8-16); ASPARTATE AMINO TRANSFERASE 34 U/L (10-37); BLOOD UREA NITROGEN 38 MG/DL (7-18); BUN/CREATININE RATIO 26.6 (5.4-32.0); CALCIUM 8.3 MG/DL (8.5-10.1); CHLORIDE 100 MMOL/L (99-107); CREATININE 1.43 MG/DL (0.60-1.10); SODIUM 135 MMOL/L (135-145); TOTAL CARBON DIOXIDE 22.5 MMOL/L (24-32); TOTAL PROTEIN 7.2 G/DL (6.4-8.2); eGFR 51 ML/MIN
[2019-02-21 21:06] LABS: GLUCOSE 136 MG/DL (70-104)
--- NOTE | 2019-02-21 22:12 | NUR ---
2003 - 6 rounds of epi, and 1 round of atropine enroute via ems 2004 - no pulse/PEA 2005 - epi/ bicarb 2006 2007- pulse + sinus 82 hr 2007- ultrasound and + contractility 2009- 114/78, 85 hr 2014- central line quad lumen started/ placed at 2033 2014-ekg 2019- 56hr, 94% ra 2023 - femoral pulse + w/ doppler, 70 hr @ 2025, 145/90 2029 113/ 63, 73hr 2031 -pulse, CPR initiated 2033 - negative pulse , PEA 2035- +pulse w/doppler 56/29 80 hr 2041 levophed 10mcg , pupils fixed dilated. 2042- pulse w/doppler heart fluttering
[2019-02-21 22:36] LABS: PLATELET ESTIMATE NORMAL
[2019-02-21 22:37] LABS: HYPOCHROMASIA 1+; POLYCHROMASIA 1+
[2019-02-21 22:38] LABS: SPHEROCYTES FEW
[2019-02-21 22:39] LABS: SCHISTOCYTES 1+
[2019-02-21 22:42] LABS: ANISOCYTOSIS 3+; MICROCYTOSIS 1+
[2019-02-22 06:56] LABS: POTASSIUM 6.1 MMOL/L (3.5-5.1)
== END 2019-02-21 23:01 | disposition expired ==
LOC: ER 20:05
DX: I46.9 Cardiac arrest, cause unspecified (principal); I50.9 Heart failure, unspecified; J44.9 Chronic obstructive pulmonary disease, unspecified; F15.90 Other stimulant use, unspecified, uncomplicated; Z79.899 Other long term (current) drug therapy; Z79.82 Long term (current) use of aspirin
CPT/HCPCS: 31500; 36415; 36556; 36600; 80053; 82803; 83605; 84145; 85018; 85025; 85610; 85730; 92950; 93005; 94760; 99291; J0171; J0461; 94002